=== PATIENT | female | born 1970 | race African-American/Black ===

== ENCOUNTER 2016-09-11 08:58 | Day surgery (SDC) | payer OTHER ==
[2016-09-06 13:00] VITALS: BMI 30.2
[2016-09-11 09:21] VITALS: TEMP 98.3
[2016-09-11] MEDS ORDERED: LIDOCAINE 1% 20 ML VIAL (10MG/ML) FOR IV START INTRADERMA ONE (09:23)
[2016-09-11] MEDS: LACTATED RINGERS 1,000 ML IV SCH ×2 (09:25→11:08)
[2016-09-11] MEDS ORDERED: LIDOCAINE 1% INJ 10MG/ML (20 ML MDV) ONE (11:48)
[2016-09-11] MEDS ORDERED: PROPOFOL 10 MG/ML 20 ML VIAL IV ONE (11:48)
--- NOTE | 2016-09-11 11:53 | P.GSHP ---
History of Present Illness H&P Date: 09/11/16 Chief Complaint: Diarrhea 's is a 46-year-old female who's had complaints of diarrhea. Patient is today for colonoscopy to evaluate for possible colitis. - Constitutional Constitutional: Reports as per HPI Past Medical History Past Medical History: Asthma, Cancer, Chest Pain / Angina, Fibromyalgia, GERD/ Reflux, Hyperlipidemia, Hypertension, Neurologic Disorder, Osteoarthritis (OA), Seizure Disorder, Skin Disorder, Thyroid Disorder Additional Past Medical History / Comment(s): HX OF SEIZURES (LAST -2015), MIGRAINES, VERTIGO, HEART MURMUR, SLIGHT SWELLING LOWER EXTREMITIES, CONSTIPATION., ARTHRITIS BACK & NERVE PAIN. , DEGENERATIVE DISC, HX OF RIGHT BREAST CANCER WITH CHEMO., eczema History of Any Multi-Drug Resistant Organisms: MRSA Date of last positivie culture/infection: 11/23/14 MDRO Source:: urine Past Surgical History: Breast Surgery, Cholecystectomy, Tubal Ligation Additional Past Surgical History / Comment(s): RIGHT MASTECTOMY, PORT inserted/ removed Past Anesthesia/Blood Transfusion Reactions: Motion Sickness Additional Past Anesthesia/Blood Transfusion Reaction / Comment(s): SISTER = DIFFICULTY WAKING UP. Past Psychological History: Anxiety, Bipolar, Depression Smoking Status: Never smoker Past Alcohol Use History: None Reported Past Drug Use History: None Reported - Past Family History Brother(s) Family Medical History: Cancer Additional Family Medical History / Comment(s): KIDNEY CANCER Medications and Allergies Home Medications Medication Instructions Recorded Confirmed Type Albuterol Inhaler [Ventolin Hfa 1 - 2 puff INHALATION TID PRN 10/20/15 09/11/16 History Inhaler] Cyclobenzaprine [Flexeril] 10 mg PO HS 10/20/15 09/11/16 History DULoxetine HCL [Cymbalta] 60 mg PO BID 10/20/15 09/11/16 History Famotidine [Pepcid] 20 mg PO BID 10/20/15 09/11/16 History Furosemide [Lasix] 20 mg PO BID 10/20/15 09/11/16 History Gabapentin [Neurontin] 100 mg PO HS 10/20/15 09/11/16 History Meclizine [Antivert] 12.5 mg PO HS PRN 10/20/15 09/11/16 History Meloxicam [Mobic] 7.5 mg PO BID 10/20/15 09/11/16 History Nitroglycerin Sl Tabs [Nitrostat] 0.4 mg SUBLINGUAL DIRECTED PRN 10/20/15 History Propranolol [Inderal] 40 mg PO BID 10/20/15 09/11/16 History Simvastatin [Zocor] 20 mg PO HS 10/20/15 09/11/16 History lamoTRIgine [LaMICtal] 100 mg PO BID 10/20/15 09/11/16 History levETIRAcetam [Keppra] 1,000 mg PO BID 10/20/15 09/11/16 History Beclomethasone Dipropionate [Qvar 1 puff INHALATION DAILY 11/03/15 09/11/16 History 80 mcg] L.acidoph,Paracasei, B.lactis 1 each PO DAILY 09/06/16 09/11/16 History [Probiotic] Allergies Allergy/AdvReac Type Severity Reaction Status Date / Time morphine Allergy Unknown SEVERE Verified 09/11/16 09:16 HEADACHE Surgical - Exam Vital Signs Temp Pulse BP Pulse Ox 98.3 F 84 144/90 96 09/11/16 09:20 09/11/16 09:20 09/11/16 09:20 09/11/16 09:20 - General well developed, no distress - Eyes PERRL - ENT normal pinna - Neck no masses - Respiratory normal expansion - Cardiovascular Rhythm: regular - Abdomen Abdomen: soft, non tender Assessment and Plan Plan: Diarrhea, possible Claeys. We'll perform colonoscopy.
--- NOTE | 2016-09-11 12:08 | P.OP ---
Date of Procedure: 09/11/16 Preoperative Diagnosis: Diarrhea Postoperative Diagnosis: Rectal biopsy pending possible colitis Deferred pathology Procedure(s) Performed: Colonoscopy Implants: Anesthesia: MAC Surgeon: Qasim Mcmillan Pathology: other (Rectum) Condition: stable Disposition: PACU Indications for Procedure: Operative Findings: Description of Procedure: The patient's placed on the endoscopy table in the lateral position. She received IV sedation. Digital rectal exam was performed which revealed no abnormalities. The flexible colonoscope was then placed patient anus and passed throughout the entire colon. The ileocecal valve was visualized. The cecum, ascending and transverse colon appeared normal. The descending and sigmoid colon appeared normal. Scope was then brought back the rectum and a random biopsies performed. There is no evidence of any obvious information. The scope was then withdrawn from the patient.
[2016-09-11 12:39] VITALS: BP 143/83; PULSE 70
== END 2016-09-11 12:45 | disposition home or self-care (01) ==
LOC: ORWHC2ENDO 08:58
PROVIDERS: ATTEND Surgery
DX: R19.7 Diarrhea, unspecified (principal); J45.909 Unspecified asthma, uncomplicated; K21.9 Gastro-esophageal reflux disease without esophagitis; M79.7 Fibromyalgia; E78.5 Hyperlipidemia, unspecified; I10 Essential (primary) hypertension; M19.90 Unspecified osteoarthritis, unspecified site; G40.909 Epilepsy, unspecified, not intractable, without status epilepticus; Z79.891 Long term (current) use of opiate analgesic; Z79.899 Other long term (current) drug therapy; Z88.5 Allergy status to narcotic agent
CPT/HCPCS: 81025; 88305; 45380; J2001; J2704

== ENCOUNTER → 2016-09-20 | Outpatient (CLI) | payer OTHER ==
--- NOTE | 2016-09-20 11:24 | FL ---
EXAMINATION TYPE: FL UGI air DATE OF EXAM: 09/20/2016 COMPARISON: NONE HISTORY: GERD TECHNIQUE: A double contrast UGI study is performed. FINDINGS: The esophagus shows normal motility and emptying into the stomach. No evidence of hiatal hernia or stricture noted. There is moderate reflux when the patient is lying dependently. The stomach shows normal distensibility, peristalsis, and mucosal folds. No evidence of any mass or ulcer disease. No significant gastroesophageal reflux was seen during real time performance of this study. The duodenal bulb, sweep, and proximal small bowel loops are unremarkable. IMPRESSION: MODERATE REFLUX.
== END | disposition home or self-care (01) ==
LOC: RADFLWHC 10:38
PROVIDERS: ATTEND Family Medicine
DX: K21.9 Gastro-esophageal reflux disease without esophagitis (principal)
CPT/HCPCS: 74246

== ENCOUNTER → 2017-01-21 | Outpatient (CLI) | payer OTHER ==
[2017-01-21 12:32] LABS: Non-African American GFR(MDRD) 59 (>60 ml/min/1.73 sqM)
--- NOTE | 2017-01-21 14:40 | MR ---
EXAMINATION TYPE: MR brain/cspine wo/w DATE OF EXAM: 01/21/2017 COMPARISON: MRI brain September 20, 2009. MRI cervical spine December 25, 2006. 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 Headache and seizure s with dizziness or hearing loss per patient. Neck pain causing pain or weakness in both arms and fin gers per patient. TECHNIQUE: Multiplanar, multisequence images of the cervical spine, brain, and brainstem are all performed witho ut and with IV contrast, utilizing 8 mL intravenous Gadavist . FINDINGS: BRAIN: Diffusion weighted images demonstrate no evidence of a recent infarct or other diffusion abnormality. There is no extra-axial fluid collection or significant white matter signal abnormality. The ventr icular system and cisternal spaces are normal in size and appearance. The brain volume is age approp riate. T2 coronal weighted images show hippocampal gyri to appear symmetric and felt within normal li mits. Midline structures demonstrate normal morphology. The craniocervical junction appears within normal limits. Post contrast images demonstrate no abnormal enhancement. The dural venous sinuses appear pa tent. The visualized sinuses are clear and the globes are intact. IMPRESSION: Unremarkable study. No significant change from prior. C-SPINE: FINDINGS: Sagittal images of the cervical spine show the craniocervical junction to appear within nor mal limits. The cervical and upper thoracic spinal cord is normal in caliber and signal. There is ge neralized AP diameter narrowing of the cervical spinal canal redemonstrated. Vertebral alignment clare ins straightened. The vertebral body heights remain normal. There is mild to moderate multilevel dis c space narrowing with multilevel posterior disc herniations effacing anterior thecal sac at C3-C4 th rough T1-T2 level on sagittal images. No abnormal postcontrast enhancement is seen. There is mild to moderate multilevel anterior spurring redemonstrated. The bone marrow signal intensity is within norm al limits. Axial images at C2-C3 level shows mild left-sided neural foraminal narrowing due to uncovertebral fac et arthropathy. Axial images at C3-C4 level show broad-based posterior disc protrusion effacing anterior thecal sac. There is uncovertebral facet degenerative changes bilaterally. There is moderate to advanced bilatera l neural foraminal narrowing at this level identified. Axial images at C4-C5 level show more prominent broad-based posterior disc protrusion effacing anteri or thecal sac up to ventral surface of spinal cord. There is advanced left greater than right bilater al neural foraminal narrowing at this level identified. Axial images at C5-C6 level redemonstrates prominent right paracentral disc protrusion on axial image 24 more prominent than prior study narrowing right aspect of spinal cord without abnormal signal. Mo derate bilateral neural foraminal narrowing is seen at this level. Axial images at C6-C7 level show broad-based right paracentral/foraminal disc protrusion effacing ant erolateral thecal sac causing flattening of the spinal cord and advanced right with moderate to advan christina left-sided neural foraminal narrowing seen best seen near axial images 12 through 14. Axial images at C7-T1 level show broad-based posterior disc protrusion effacing anterior thecal sac u p to ventral surface of spinal cord and causing moderate to advanced left greater than right neural f oraminal narrowing. IMPRESSION: Straightening of cervical spine with significant multilevel degenerative changes redemons trated, progression from 2007 MRI is noted. Further details are noted as discussed above as there is significant multilevel bilateral neural foraminal narrowing and spinal canal effacement present.
[2017-01-22 06:58] LABS: Levetiracetam (Keppra) 8.2 ug/mL (3.0-60.0)
[2017-01-22 14:12] LABS: Lamotrigine (Lamictal) 2.8 ug/mL (2.0-15.0)
== END | disposition home or self-care (01) ==
LOC: RADMRIMAIN 11:46
PROVIDERS: ATTEND Psychiatry & Neurology Neurology
DX: G40.009 Localization-related (focal) (partial) idiopathic epilepsy and epileptic syndromes with seizures of localized onset, not intractable, without status epilepticus (principal); M99.71 Connective tissue and disc stenosis of intervertebral foramina of cervical region; M47.812 Spondylosis without myelopathy or radiculopathy, cervical region; Z13.89 Encounter for screening for other disorder
CPT/HCPCS: 80175; 80177; 82565; 70553; 72156; 36415; A9581

== ENCOUNTER → 2017-04-25 | Outpatient (CLI) | payer OTHER ==
--- NOTE | 2017-04-25 13:58 | ECHOS ---
STRESS ECHOCARDIOGRAM INDICATIONS: Chest pain. MEDICATIONS: Keppra, Lamictal, Cymbalta, metoprolol, gabapentin, simvastatin, metformin, furosemide. BASELINE HEART RATE: 82 BASELINE BLOOD PRESSURE: 160/84 MAXIMUM HEART RATE: 152 MAXIMUM BLOOD PRESSURE: 188/91 85% MPHR: 147 100% MPHR: 173 METS: 7.9 MAXIMUM STAGE REACHED: 3 TOTAL EXERCISE TIME: 6:30 CLINICAL INFORMATION: This is an exercise stress echo report. History of chest discomfort. Baseline heart rate 82 beats per minute. Baseline blood pressure 160/84 mmHg. Baseline 12-lead ECG shows normal sinus rhythm with nonspecific ST-T abnormalities inferolaterally. Patient exercised on a Mahesh protocol for 6 minutes 30 seconds achieving a peak heart rate of 152 beats per minute. Peak blood pressure 188/91 mmHg. Occasional PVCs noted. There was no ECG evidence for ischemia. No sustained or nonsustained arrhythmias noted. Baseline 2D echo images showed normal LV size, systolic function without segmental wall motion abnormalities. At peak exercise, there was excellent augmentation of overall LV contractility without developing any wall motion abnormalities. At recovery, regional global LV systolic function remained normal. IMPRESSION: Average exercise capacity without any ECG or echocardiographic evidence for ischemia. MMODL / IJN: [id number] /
== END | disposition home or self-care (01) ==
LOC: RADNMMAIN 09:52
PROVIDERS: ATTEND Family Medicine
DX: R94.31 Abnormal electrocardiogram [ECG] [EKG] (principal)
CPT/HCPCS: 93017; 93350

== ENCOUNTER 2017-05-08 09:30 | Emergency (ER) | payer OTHER ==
[2017-05-08] MEDS ORDERED: SODIUM CHLORIDE 0.9% 500 ML IV STA ×2 (09:36→12:06)
[2017-05-08] MEDS ORDERED: SODIUM CHLORIDE 0.9% 1,000 ML IV STA (09:36)
[2017-05-08] MEDS ORDERED: HYDROmorphone 2 MG/ML 1 ML SYRINGE IVP STA (10:01)
[2017-05-08] MEDS ORDERED: ACETAMINOPHEN IV (For NPO) 1,000 MG in EMPTY BAG 1 BAG IVPB STA (10:01)
--- NOTE | 2017-05-08 10:07 | ED ---
General Adult HPI - General Chief complaint: Chest Pain Stated complaint: Chest Pain/SOB Time Seen by Provider: 05/08/17 09:36 Source: patient, EMS, RN notes reviewed, old records reviewed Mode of arrival: EMS - History of Present Illness Initial comments: This is a 47-year-old female to the ER for evaluation. Patient coming in for multiple complaints today. Patient's complaints she is increasing pain. She has pain arm hand pain neck pain back pain chest pain. Patient's pain is related to recent surgery. Patient's surgery was for nerve damage in her neck. Patient's pain at home is not being controlled well is actually getting worse. Patient denies fevers no shortness of breath cough or congestion. She states she may have some urinary tract symptoms. No abdominal pain. - Related Data Home Medications Medication Instructions Recorded Confirmed Albuterol Inhaler [Ventolin Hfa 1 - 2 puff INHALATION RT-TID PRN 10/20/15 Inhaler] DULoxetine HCL [Cymbalta] 60 mg PO DAILY 10/20/15 05/08/17 Furosemide [Lasix] 20 mg PO BID 10/20/15 05/08/17 Nitroglycerin Sl Tabs [Nitrostat] 0.4 mg SUBLINGUAL Q5M PRN 10/20/15 05/08/17 Propranolol [Inderal] 40 mg PO BID 10/20/15 05/08/17 lamoTRIgine [LaMICtal] 100 mg PO BID 10/20/15 05/08/17 levETIRAcetam [Keppra] 1,000 mg PO BID 10/20/15 05/08/17 Albuterol Nebulized [Ventolin 2.5 mg INHALATION RT-Q6H PRN 05/08/17 05/08/17 Nebulized] Bisacodyl [Dulcolax] 5 mg PO DAILY PRN 05/08/17 05/08/17 Diazepam [Valium] 5 mg PO Q6H PRN 05/08/17 05/08/17 Flunisolide [Aerospan] 1 puff INHALATION RT-DAILY 05/08/17 05/08/17 Gabapentin [Neurontin] 300 mg PO TID 05/08/17 05/08/17 HYDROcodone/APAP 5-325MG [[place] 1 - 2 tab PO Q4HR PRN 05/08/17 05/08/17 5-325] Meclizine [Antivert] 25 mg PO TID PRN 05/08/17 05/08/17 Omeprazole 20 mg PO BID 05/08/17 05/08/17 Polyethylene Glycol 3350 [Miralax] 17 gm PO DAILY 05/08/17 05/08/17 Sennosides [Senna] 8.6 mg PO BID 05/08/17 05/08/17 Simvastatin [Zocor] 20 mg PO HS 05/08/17 05/08/17 metFORMIN HCL [Glucophage] 500 mg PO BID 05/08/17 05/08/17 Previous Rx's Medication Instructions Recorded hydrOXYzine HCL [Atarax] 25 mg PO HS #20 tab 05/08/17 traMADol HCl [Ultram] 100 mg PO Q6HR PRN #20 tab 05/08/17 Allergies Allergy/AdvReac Type Severity Reaction Status Date / Time morphine Allergy Unknown SEVERE Verified 05/08/17 09:50 HEADACHE Review of Systems ROS Statement: Those systems with pertinent positive or pertinent negative responses have been documented in the HPI. ROS Other: All systems not noted in ROS Statement are negative. Past Medical History Past Medical History: Asthma, Cancer, Chest Pain / Angina, Diabetes Mellitus, Fibromyalgia, GERD/Reflux, Hyperlipidemia, Hypertension, Neurologic Disorder, Osteoarthritis (OA), Seizure Disorder, Skin Disorder, Thyroid Disorder Additional Past Medical History / Comment(s): HX OF SEIZURES (LAST -2015), MIGRAINES, VERTIGO, HEART MURMUR, SLIGHT SWELLING LOWER EXTREMITIES, CONSTIPATION., ARTHRITIS BACK & NERVE PAIN. , DEGENERATIVE DISC, HX OF RIGHT BREAST CANCER WITH CHEMO., eczema History of Any Multi-Drug Resistant Organisms: MRSA Date of last positivie culture/infection: 11/23/14 MDRO Source:: urine Past Surgical History: Breast Surgery, Cholecystectomy, Tubal Ligation Additional Past Surgical History / Comment(s): RIGHT MASTECTOMY, PORT inserted/ removed, spinal fusion Past Anesthesia/Blood Transfusion Reactions: Motion Sickness Additional Past Anesthesia/Blood Transfusion Reaction / Comment(s): SISTER = DIFFICULTY WAKING UP. Past Psychological History: Anxiety, Bipolar, Depression Smoking Status: Never smoker Past Alcohol Use History: None Reported Past Drug Use History: None Reported - Past Family History Brother(s) Family Medical History: Cancer Additional Family Medical History / Comment(s): KIDNEY CANCER General Exam - General Exam Comments Initial Comments: Anterior neck incision is clean dry intact General appearance: alert, in no apparent distress Head exam: Present: atraumatic, normocephalic, normal inspection Eye exam: Present: normal appearance, PERRL, EOMI. Absent: scleral icterus, conjunctival injection, periorbital swelling ENT exam: Present: normal exam, mucous membranes moist Neck exam: Present: normal inspection. Absent: tenderness, meningismus, lymphadenopathy Respiratory exam: Present: normal lung sounds bilaterally. Absent: respiratory distress, wheezes, rales, rhonchi, stridor Cardiovascular Exam: Present: regular rate, normal rhythm, normal heart sounds. Absent: systolic murmur, diastolic murmur, rubs, gallop, clicks GI/Abdominal exam: Present: soft, normal bowel sounds. Absent: distended, tenderness, guarding, rebound, rigid Extremities exam: Present: normal inspection, full ROM, normal capillary refill. Absent: tenderness, pedal edema, joint swelling, calf tenderness Back exam: Present: normal inspection Neurological exam: Present: alert, oriented X3, CN II-XII intact Psychiatric exam: Present: normal affect, normal mood Skin exam: Present: warm, dry, intact, normal color. Absent: rash Course Vital Signs 05/08/17 05/08/17 05/08/17 09:37 09:41 11:47 Temperature 98.1 F Pulse Rate 77 80 68 Respiratory 18 18 12 Rate Blood Pressure 178/86 127/67 127/76 O2 Sat by Pulse 98 96 97 Oximetry 05/08/17 13:16 Temperature Pulse Rate 74 Respiratory 18 Rate Blood Pressure 143/65 O2 Sat by Pulse 94 L Oximetry - Reevaluation(s) Reevaluation #1: 05/08/17 13:51 Patient has adequate pain control at this time, she is resting comfortably able to get some rest, Reevaluation #2: 05/08/17 13:51 Patient with patient's family, they updated of patient condition, questions are answered EKG Findings - EKG Comments: EKG Findings:: EKG shows normal sinus rhythm rate of 71, KS 140, QRS 84, QTC 480 Medical Decision Making - Medical Decision Making 47 female the ER for evaluation, patient chest pain neck pain. Pain and numbness and tingling, patient has multiple surgeries, negative for acute disease, no recent fevers. Patient at this time is adequate pain control was able to get some rest encouraged increased fluid intake and follow up with surgery - Lab Data Result diagrams: 05/08/17 10:43 05/08/17 10:43 Lab Results 05/08/17 05/08/17 05/08/17 Range/Units 10:43 10:43 10:43 WBC 13.4 H (3.8-10.6) k/uL RBC 3.97 (3.80-5.40) m/uL Hgb 12.6 (11.4-16.0) gm/dL Hct 37.0 (34.0-46.0) % MCV 93.2 (80.0-100.0) fL MCH 31.6 (25.0-35.0) pg MCHC 33.9 (31.0-37.0) g/dL RDW 12.8 (11.5-15.5) % Plt Count 361 (150-450) k/uL Neutrophils % 61 % Lymphocytes % 24 % Monocytes % 5 % Eosinophils % 8 % Basophils % 1 % Neutrophils # 8.2 H (1.3-7.7) k/uL Lymphocytes # 3.2 (1.0-4.8) k/uL Monocytes # 0.7 (0-1.0) k/uL Eosinophils # 1.0 H (0-0.7) k/uL Basophils # 0.1 (0-0.2) k/uL PT (9.0-12.0) sec INR (<1.2) APTT (22.0-30.0) sec D-Dimer (<0.60) mg/L FEU Sodium 141 (137-145) mmol/L Potassium 3.8 (3.5-5.1) mmol/L Chloride 99 (98-107) mmol/L Carbon Dioxide 27 (22-30) mmol/L Anion Gap 15 mmol/L BUN 10 (7-17) mg/dL Creatinine 0.70 (0.52-1.04) mg/dL Est GFR (MDRD) Af Amer >60 (>60 ml/min/1.73 sqM) Est GFR (MDRD) Non-Af >60 (>60 ml/min/1.73 sqM) Glucose 161 H (74-99) mg/dL Calcium 10.0 (8.4-10.2) mg/dL Phosphorus 3.7 (2.5-4.5) mg/dL Magnesium 1.7 (1.6-2.3) mg/dL Total Bilirubin 0.2 (0.2-1.3) mg/dL AST 23 (14-36) U/L ALT 53 H (9-52) U/L Alkaline Phosphatase 75 (38-126) U/L Total Creatine Kinase 89 (30-135) U/L CK-MB (CK-2) 0.7 (0.0-2.4) ng/mL CK-MB (CK-2) Rel Index 0.8 Troponin I <0.012 (0.000-0.034) ng/mL Total Protein 7.0 (6.3-8.2) g/dL Albumin 4.2 (3.5-5.0) g/dL Urine Color Urine Appearance (Clear) Urine pH (5.0-8.0) Ur Specific [place] (1.001-1.035) Urine Protein (Negative) Urine Glucose (UA) (Negative) Urine Ketones (Negative) Urine Blood (Negative) Urine Nitrite (Negative) Urine Bilirubin (Negative) Urine Urobilinogen (<2.0) mg/dL Ur Leukocyte Esterase (Negative) Urine WBC (0-5) /hpf Ur Squamous Epith Cells (0-4) /hpf Urine Bacteria (None) /hpf Urine Mucus (None) /hpf 05/08/17 05/08/17 Range/Units 10:43 13:07 WBC (3.8-10.6) k/uL RBC (3.80-5.40) m/uL Hgb (11.4-16.0) gm/dL Hct (34.0-46.0) % MCV (80.0-100.0) fL MCH (25.0-35.0) pg MCHC (31.0-37.0) g/dL RDW (11.5-15.5) % Plt Count (150-450) k/uL Neutrophils % % Lymphocytes % % Monocytes % % Eosinophils % % Basophils % % Neutrophils # (1.3-7.7) k/uL Lymphocytes # (1.0-4.8) k/uL Monocytes # (0-1.0) k/uL Eosinophils # (0-0.7) k/uL Basophils # (0-0.2) k/uL PT 10.0 (9.0-12.0) sec INR 1.0 (<1.2) APTT 20.5 L (22.0-30.0) sec D-Dimer 4.28 H (<0.60) mg/L FEU Sodium (137-145) mmol/L Potassium (3.5-5.1) mmol/L Chloride (98-107) mmol/L Carbon Dioxide (22-30) mmol/L Anion Gap mmol/L BUN (7-17) mg/dL Creatinine (0.52-1.04) mg/dL Est GFR (MDRD) Af Amer (>60 ml/min/1.73 sqM) Est GFR (MDRD) Non-Af (>60 ml/min/1.73 sqM) Glucose (74-99) mg/dL Calcium (8.4-10.2) mg/dL Phosphorus (2.5-4.5) mg/dL Magnesium (1.6-2.3) mg/dL Total Bilirubin (0.2-1.3) mg/dL AST (14-36) U/L ALT (9-52) U/L Alkaline Phosphatase (38-126) U/L Total Creatine Kinase (30-135) U/L CK-MB (CK-2) (0.0-2.4) ng/mL CK-MB (CK-2) Rel Index Troponin I (0.000-0.034) ng/mL Total Protein (6.3-8.2) g/dL Albumin (3.5-5.0) g/dL Urine Color Yellow Urine Appearance Clear (Clear) Urine pH 5.5 (5.0-8.0) Ur Specific [place] 1.041 H (1.001-1.035) Urine Protein Trace H (Negative) Urine Glucose (UA) Negative (Negative) Urine Ketones Negative (Negative) Urine Blood Negative (Negative) Urine Nitrite Negative (Negative) Urine Bilirubin Negative (Negative) Urine Urobilinogen <2.0 (<2.0) mg/dL Ur Leukocyte Esterase Large H (Negative) Urine WBC 4 (0-5) /hpf Ur Squamous Epith Cells 3 (0-4) /hpf Urine Bacteria Rare H (None) /hpf Urine Mucus Rare H (None) /hpf - Radiology Data Radiology results: report reviewed (Chest x-ray CT chest negative for acute disease), image reviewed Disposition Clinical Impression: Chest pain, Postoperative pain Disposition: HOME SELF-CARE Condition: Good Instructions: Chest Pain (ED), Paresthesia (ED) Prescriptions: hydrOXYzine HCL [Atarax] 25 mg PO HS #20 tab traMADol HCl [Ultram] 100 mg PO Q6HR PRN #20 tab PRN Reason: Pain Referrals: Blanca Escamilla DO [Primary Care Provider] - 1-2 days
[2017-05-08 10:53] LABS: Basophils # (A) 0.1 k/uL (0-0.2); Basophils % (A) 1 %; Eosinophils % (A) 8 %; HGB 12.6 gm/dL (11.4-16.0); Lymphocytes # (A) 3.2 k/uL (1.0-4.8); Lymphocytes % (A) 24 %; MCH 31.6 pg (25.0-35.0); MCHC 33.9 g/dL (31.0-37.0); MCV 93.2 fL (80.0-100.0); Monocytes # (A) 0.7 k/uL (0-1.0); Monocytes % (A) 5 %; Neutrophils # (A) 8.2 k/uL (1.3-7.7); Neutrophils % (A) 61 %; Platelet Count 361 k/uL (150-450); RBC 3.97 m/uL (3.80-5.40); RDW 12.8 % (11.5-15.5); WBC 13.4 k/uL (3.8-10.6)
[2017-05-08 11:03] LABS: ALT 53 U/L (9-52); AST 23 U/L (14-36); Albumin 4.2 g/dL (3.5-5.0); Alkaline Phosphatase 75 U/L (38-126); Anion Gap 15 mmol/L; Blood Urea Nitrogen 10 mg/dL (7-17); Carbon Dioxide 27 mmol/L (22-30); Chloride 99 mmol/L (98-107); Glucose 161 mg/dL (74-99); Magnesium 1.7 mg/dL (1.6-2.3); Phosphorus 3.7 mg/dL (2.5-4.5); Potassium 3.8 mmol/L (3.5-5.1); Sodium 141 mmol/L (137-145); Total Bilirubin 0.2 mg/dL (0.2-1.3)
--- NOTE | 2017-05-08 11:07 | XR ---
EXAMINATION TYPE: XR chest 2V DATE OF EXAM: 05/08/2017 COMPARISON: 11/09/2012 TECHNIQUE: PA and lateral views submitted. HISTORY: Body weakness FINDINGS: The lungs are clear and there is no pneumothorax, pleural effusion, or focal pneumonia. Surgical ch matt overlying the cervical spine. Heart size stable. Positioning limits assessment of the lung apice s. There is prominence of the right hilum. IMPRESSION: 1. No acute process. There is prominence the right hilum which could be correlated with a short-term follow-up CT of the chest.
[2017-05-08 11:15] LABS: Creatine Kinase 89 U/L (30-135)
[2017-05-08 11:29] LABS: Creatine Kinase MB 0.7 ng/mL (0.0-2.4); Troponin I <0.012 ng/mL (0.000-0.034)
[2017-05-08 11:40] LABS: D-Dimer 4.28 mg/L FEU (<0.60)
[2017-05-08 11:48] LABS: Partial Thromboplastin Time 20.5 sec (22.0-30.0)
[2017-05-08] MEDS ORDERED: RX INFO: IV CONTRAST WAS GIVEN 1 EACH MISC MISCELLANE PRN (12:05)
--- NOTE | 2017-05-08 12:54 | CT ---
EXAMINATION TYPE: CT angio chest DATE OF EXAM: 05/08/2017 COMPARISON: NONE HISTORY: Chest pain and shortness of breath. Neck surgery 1 week ago, elevated d-dimer. CT DLP: 354.90 mGycm CONTRAST: CT chest with contrast and 3D reconstruction with MIP imaging is performed with IV Contrast, patient injected with 79 mL of Omnipaque 350. Contrast-enhanced CT of the chest was performed through the course of the pulmonary arteries with sara g and mediastinal window settings submitted. 3D reconstruction with MIP imaging was also performed. PULMONARY ARTERIES: The pulmonary arteries and their major tributaries are patent. I do not see dale dence for sizable filling defect to suggest pulmonary embolic process. LUNGS: The lungs are clear and free of infiltrate. No evidence for atelectasis. No pulmonary nodule or mass is detected. No pleural effusion. MEDIASTINUM: Thoracic aorta is of normal caliber . The heart is not enlarged. No evidence for media stinal mass. No mediastinal lymph nodes greater than 1cm. HILAR STRUCTURES: No evidence for mass. No hilar lymph nodes greater than 1 cm. UPPER ABDOMEN: No significant abnormality is seen. IMPRESSION: 1. No evidence for Pulmonary embolism at this time.
[2017-05-08 13:17] VITALS: RESP 18
[2017-05-08 13:27] LABS: Appearance,Urine Clear (Clear); Bacteria,Urine Rare /hpf; Bilirubin,Urine Negative (Negative); Blood,Urine Negative (Negative); Color,Urine Yellow; Glucose,Urine (UA) Negative (Negative); Ketones,Urine Negative (Negative); Leukocyte Esterase,Urine Large (Negative); Mucus,Urine Rare /hpf; Nitrite,Urine Negative (Negative); PH, Urine 5.5 (5.0-8.0); Protein,Urine Trace (Negative); Specific Gravity,Urine 1.041 (1.001-1.035); Squamous Epithelial Cell,Urine 3 /hpf (0-4); Urobilinogen,Urine <2.0 mg/dL (<2.0); WBC,Urine 4 /hpf (0-5)
[2017-05-08 14:07] VITALS: BP 150/65; PULSE 68; TEMP 97.4
== END 2017-05-08 14:07 | disposition home or self-care (01) ==
LOC: EC 09:30
DX: R07.9 Chest pain, unspecified (principal); M54.2 Cervicalgia; M54.9 Dorsalgia, unspecified; M79.603 Pain in arm, unspecified; J45.909 Unspecified asthma, uncomplicated; E11.9 Type 2 diabetes mellitus without complications; M79.7 Fibromyalgia; K21.9 Gastro-esophageal reflux disease without esophagitis; E78.5 Hyperlipidemia, unspecified; I10 Essential (primary) hypertension; M19.90 Unspecified osteoarthritis, unspecified site; G40.909 Epilepsy, unspecified, not intractable, without status epilepticus; E07.9 Disorder of thyroid, unspecified; F31.9 Bipolar disorder, unspecified; F41.9 Anxiety disorder, unspecified; Z86.14 Personal history of Methicillin resistant Staphylococcus aureus infection; Z85.3 Personal history of malignant neoplasm of breast; Z79.84 Long term (current) use of oral hypoglycemic drugs; Z79.51 Long term (current) use of inhaled steroids; Z79.899 Other long term (current) drug therapy; Z88.5 Allergy status to narcotic agent; Z53.29 Procedure and treatment not carried out because of patient's decision for other reasons
CPT/HCPCS: 36415; 93005; 85379; 80053; 82550; 82553; 83735; 84100; 84484; 85025; 85610; 85730; 81001; 87086; 71046; 71275; 99285; 96374; 96361 ×4; J1170; Q9967

== ENCOUNTER 2017-05-09 03:22 | Emergency (ER) | payer OTHER ==
[2017-05-09] MEDS ORDERED: HYDROmorphone 2 MG/ML 1 ML SYRINGE IM STA (04:02)
--- NOTE | 2017-05-09 04:05 | ED ---
General Adult HPI - General Chief complaint: Neck Pain/Injury Stated complaint: post op concerns Time Seen by Provider: 05/09/17 03:25 Source: patient, RN notes reviewed Mode of arrival: ambulatory Limitations: no limitations - History of Present Illness Initial comments: This is a 47-year-old female who states she had neck surgery earlier this month and her [place] and Valium and not helping her with the pain. Patient states she' s only here just to get a pain shot so that she can get some sleep tonight. Patient states she will contact her primary medical care doctor or her surgeon tomorrow to get more pain medicine or stronger pain medicine. Patient denies any new symptoms. Patient denies any numbness weakness. Patient denies any headache. Patient denies any fever chills or cough. - Related Data Home Medications Medication Instructions Recorded Confirmed Albuterol Inhaler [Ventolin Hfa 1 - 2 puff INHALATION RT-TID PRN 10/20/15 Inhaler] DULoxetine HCL [Cymbalta] 60 mg PO DAILY 10/20/15 05/08/17 Furosemide [Lasix] 20 mg PO BID 10/20/15 05/08/17 Nitroglycerin Sl Tabs [Nitrostat] 0.4 mg SUBLINGUAL Q5M PRN 10/20/15 05/08/17 Propranolol [Inderal] 40 mg PO BID 10/20/15 05/08/17 lamoTRIgine [LaMICtal] 100 mg PO BID 10/20/15 05/08/17 levETIRAcetam [Keppra] 1,000 mg PO BID 10/20/15 05/08/17 Albuterol Nebulized [Ventolin 2.5 mg INHALATION RT-Q6H PRN 05/08/17 05/08/17 Nebulized] Bisacodyl [Dulcolax] 5 mg PO DAILY PRN 05/08/17 05/08/17 Diazepam [Valium] 5 mg PO Q6H PRN 05/08/17 05/08/17 Flunisolide [Aerospan] 1 puff INHALATION RT-DAILY 05/08/17 05/08/17 Gabapentin [Neurontin] 300 mg PO TID 05/08/17 05/08/17 HYDROcodone/APAP 5-325MG [[place] 1 - 2 tab PO Q4HR PRN 05/08/17 05/08/17 5-325] Meclizine [Antivert] 25 mg PO TID PRN 05/08/17 05/08/17 Omeprazole 20 mg PO BID 05/08/17 05/08/17 Polyethylene Glycol 3350 [Miralax] 17 gm PO DAILY 05/08/17 05/08/17 Sennosides [Senna] 8.6 mg PO BID 05/08/17 05/08/17 Simvastatin [Zocor] 20 mg PO HS 05/08/17 05/08/17 metFORMIN HCL [Glucophage] 500 mg PO BID 05/08/17 05/08/17 Previous Rx's Medication Instructions Recorded hydrOXYzine HCL [Atarax] 25 mg PO HS #20 tab 05/08/17 traMADol HCl [Ultram] 100 mg PO Q6HR PRN #20 tab 05/08/17 Allergies Allergy/AdvReac Type Severity Reaction Status Date / Time morphine Allergy Unknown SEVERE Verified 05/08/17 09:50 HEADACHE Review of Systems ROS Statement: Those systems with pertinent positive or pertinent negative responses have been documented in the HPI. ROS Other: All systems not noted in ROS Statement are negative. Past Medical History Past Medical History: Asthma, Cancer, Chest Pain / Angina, Diabetes Mellitus, Fibromyalgia, GERD/Reflux, Hyperlipidemia, Hypertension, Neurologic Disorder, Osteoarthritis (OA), Seizure Disorder, Skin Disorder, Thyroid Disorder Additional Past Medical History / Comment(s): HX OF SEIZURES (LAST -2015), MIGRAINES, VERTIGO, HEART MURMUR, SLIGHT SWELLING LOWER EXTREMITIES, CONSTIPATION., ARTHRITIS BACK & NERVE PAIN. , DEGENERATIVE DISC, HX OF RIGHT BREAST CANCER WITH CHEMO., eczema History of Any Multi-Drug Resistant Organisms: MRSA Date of last positivie culture/infection: 11/23/14 MDRO Source:: urine Past Surgical History: Breast Surgery, Cholecystectomy, Tubal Ligation Additional Past Surgical History / Comment(s): RIGHT MASTECTOMY, PORT inserted/ removed, spinal fusion Past Anesthesia/Blood Transfusion Reactions: Motion Sickness Additional Past Anesthesia/Blood Transfusion Reaction / Comment(s): SISTER = DIFFICULTY WAKING UP. Past Psychological History: Anxiety, Bipolar, Depression Smoking Status: Never smoker Past Alcohol Use History: None Reported Past Drug Use History: None Reported - Past Family History Brother(s) Family Medical History: Cancer Additional Family Medical History / Comment(s): KIDNEY CANCER General Exam - General Exam Comments Initial Comments: GENERAL Patient is well-developed and well-nourished. Patient is in mild distress. EYES Patient's pupils are equal and round. Extraocular motion is intact SKIN Unremarkable NEURO The patient is alert and oriented 3 PYSCH Patient has normal interpersonal interactions. MUSCULOSKELETAL Patient has a collar on her neck I did not remove it to get any range of motion. Limitations: no limitations Course Vital Signs 05/09/17 03:23 Temperature 98.7 F Pulse Rate 80 Respiratory 16 Rate Blood Pressure 168/79 O2 Sat by Pulse 100 Oximetry Disposition Clinical Impression: Postoperative pain Disposition: HOME SELF-CARE Instructions: Neck Pain (ED) Referrals: Blanca Escamilla DO [Primary Care Provider] - 1-2 days Time of Disposition: 04:04
[2017-05-09 04:31] VITALS: BP 156/89; PULSE 77; RESP 18; TEMP 98
== END 2017-05-09 04:31 | disposition home or self-care (01) ==
LOC: EC 03:22
DX: G89.18 Other acute postprocedural pain (principal); M54.2 Cervicalgia; E78.5 Hyperlipidemia, unspecified; I10 Essential (primary) hypertension; E11.9 Type 2 diabetes mellitus without complications; J45.909 Unspecified asthma, uncomplicated; K21.9 Gastro-esophageal reflux disease without esophagitis; G40.909 Epilepsy, unspecified, not intractable, without status epilepticus; M79.7 Fibromyalgia; F31.9 Bipolar disorder, unspecified; F41.9 Anxiety disorder, unspecified; Z79.51 Long term (current) use of inhaled steroids; Z79.84 Long term (current) use of oral hypoglycemic drugs; Z79.899 Other long term (current) drug therapy; Z85.3 Personal history of malignant neoplasm of breast; Z88.5 Allergy status to narcotic agent; Z92.21 Personal history of antineoplastic chemotherapy; Z86.79 Personal history of other diseases of the circulatory system; Z86.69 Personal history of other diseases of the nervous system and sense organs; Z86.14 Personal history of Methicillin resistant Staphylococcus aureus infection; Z90.11 Acquired absence of right breast and nipple; Z98.1 Arthrodesis status
CPT/HCPCS: 99283; 96372; J1170

== ENCOUNTER → 2017-12-13 | Outpatient (CLI) | payer OTHER ==
--- NOTE | 2017-12-13 11:25 | XR ---
Cervical spine HISTORY: Status post cervical fusion Comparison to prior CT cervical spine dated 2016 Patient is status post anterior cervical fusion at C4-T1. There is anatomic alignment. Spondylosis no solo at C3-4, loss of disc height C2-3 and C3-4. Bone mineralization is maintained. Oblique images leopoldo w foraminal encroachment at C3-4, C4-5 and C5-6 and likely C6-7 bilaterally as well as C2-3 bilateral ly. IMPRESSION: Neurosurgical follow-up. Degenerative disc disease.
--- NOTE | 2017-12-13 11:55 | MR ---
EXAMINATION TYPE: MR lumbar spine wo con DATE OF EXAM: 12/13/2017 COMPARISON: Prior lumbar MRI 01/06/2007 HISTORY: Lower back/bilateral leg pain TECHNIQUE: Multiplanar, multisequence images of the lumbar spine were acquired. L1-L2: Minimal posterior broad-based disc bulge causes only slight anterior mass effect on the thecal sac, no central stenosis or foraminal encroachment, there is some loss of disc height and signal com patible disc desiccation and degenerative disc disease. L2-L3: Normal disc appearance without desiccation. No herniation, protrusion or disc bulging. No ca nal stenosis is present. Foramina are patent bilaterally. There is some mild facet arthropathy. L3-L4: Normal disc appearance without desiccation. No herniation, protrusion or disc bulging. No ca nal stenosis is present. Foramina are patent bilaterally. There is some mild facet arthropathy. L4-L5: There is a left lateral broad-based disc bulge extending towards the neural foramen, posterior broad-based disc bulge causes only minimal anterior mass effect on the thecal sac and right foramina l encroachment, there is no significant spinal stenosis. Facet arthropathy changes present. There is some loss of disc height and signal. L5-S1: Posterior broad-based disc bulge contacts the anterior thecal sac, no significant spinal steno sis or foraminal encroachment. Lumbar segments are intact. No paraspinal masses are identified. Conus medullaris has a normal appe arance. There is preserved height and alignment of the vertebral bodies. Mild spondylosis is present with minimal endplate discogenic marrow signal change. IMPRESSION: Mild degenerative disc disease as described. Facet arthropathy.
== END | disposition home or self-care (01) ==
LOC: RADMRIMAIN 08:08
PROVIDERS: ATTEND Neurological Surgery
DX: M50.31 Other cervical disc degeneration, high cervical region (principal); M51.36 Other intervertebral disc degeneration, lumbar region; M48.8X6 Other specified spondylopathies, lumbar region
CPT/HCPCS: 72050; 72148

== ENCOUNTER 2018-02-10 12:33 | Emergency (ER) | payer OTHER ==
[2018-02-10 13:27] VITALS: RESP 18
[2018-02-10] MEDS ORDERED: methylPREDNISolone SOD SUCCI 125 MG/2 ML VIAL IV STA (13:50)
[2018-02-10] MEDS ORDERED: IPRATROPIUM-ALBUTEROL 3 ML NEB INHALATION STA (13:50)
--- NOTE | 2018-02-10 14:00 | ED ---
General Adult HPI - General Chief complaint: Upper Respiratory Infection Stated complaint: cough, wheezing Time Seen by Provider: 02/10/18 13:36 Source: patient, RN notes reviewed Mode of arrival: ambulatory Limitations: no limitations - History of Present Illness Initial comments: Patient's a 48-year-old female with significant past medical history for asthma , who presented to the emergency room today with chief complaint of cough congestion over the last month. Patient admits that she follow-up the family doctor was given a different inhaler. She states she's tried this with little relief the symptoms. States she still having cough congestion. States feels somewhat short of breath. She states that she is experiencing some chest pain that is worse with the cough and deep inspiration. Patient denies any other complaints. Patient denies any recent fever, chills, back pain, abdominal pain, nausea or vomiting, numbness or tingling, dysuria or hematuria, constipation or diarrhea, headaches or visual changes, or any other complaints. - Related Data Home Medications Medication Instructions Recorded Confirmed Albuterol Inhaler [Ventolin Hfa 1 - 2 puff INHALATION RT-TID PRN 10/20/15 Inhaler] DULoxetine HCL [Cymbalta] 60 mg PO DAILY 10/20/15 02/10/18 Furosemide [Lasix] 20 mg PO BID 10/20/15 02/10/18 Nitroglycerin Sl Tabs [Nitrostat] 0.4 mg SUBLINGUAL Q5M PRN 10/20/15 02/10/18 Propranolol [Inderal] 40 mg PO BID 10/20/15 02/10/18 lamoTRIgine [LaMICtal] 100 mg PO BID 10/20/15 02/10/18 levETIRAcetam [Keppra] 1,000 mg PO BID 10/20/15 02/10/18 Albuterol Nebulized [Ventolin 2.5 mg INHALATION RT-Q6H PRN 05/08/17 02/10/18 Nebulized] Flunisolide [Aerospan] 2 puff INHALATION RT-BID 05/08/17 02/10/18 Gabapentin [Neurontin] 300 mg PO BID 05/08/17 02/10/18 Meclizine [Antivert] 25 mg PO DAILY PRN 05/08/17 02/10/18 Omeprazole 20 mg PO BID 05/08/17 02/10/18 Simvastatin [Zocor] 20 mg PO HS 05/08/17 02/10/18 metFORMIN HCL [Glucophage] 500 mg PO BID 05/08/17 02/10/18 Cranberry Fruit Concentrate [Azo 250 mg PO DAILY 02/10/18 02/10/18 Cranberry] Cyclobenzaprine [Flexeril] 10 mg PO TID 02/10/18 02/10/18 Diclofenac Sodium [Voltaren] 75 mg PO BID 02/10/18 02/10/18 Docusate [Colace] 100 mg PO DAILY 02/10/18 02/10/18 Famotidine [Pepcid] 20 mg PO BID 02/10/18 02/10/18 Lisinopril [Zestril] 10 mg PO DAILY 02/10/18 02/10/18 tiZANidine HCL 4 mg PO DAILY PRN 02/10/18 02/10/18 Previous Rx's Medication Instructions Recorded Azithromycin [Zithromax Z-pack] 0 mg PO DIRECTED #6 tab 02/10/18 predniSONE 50 mg PO DAILY #5 tab 02/10/18 Allergies Allergy/AdvReac Type Severity Reaction Status Date / Time morphine AdvReac Unknown SEVERE Verified 02/10/18 15:51 [place]AC[place] Review of Systems ROS Statement: Those systems with pertinent positive or pertinent negative responses have been documented in the HPI. ROS Other: All systems not noted in ROS Statement are negative. Past Medical History Past Medical History: Asthma, Cancer, Chest Pain / Angina, Diabetes Mellitus, Fibromyalgia, GERD/Reflux, Hyperlipidemia, Hypertension, Neurologic Disorder, Osteoarthritis (OA), Seizure Disorder, Skin Disorder, Thyroid Disorder Additional Past Medical History / Comment(s): HX OF SEIZURES (LAST -2015), MIGRAINES, VERTIGO, HEART MURMUR, SLIGHT SWELLING LOWER EXTREMITIES, CONSTIPATION., ARTHRITIS BACK & NERVE PAIN. , DEGENERATIVE DISC, HX OF RIGHT BREAST CANCER WITH CHEMO., eczema History of Any Multi-Drug Resistant Organisms: MRSA Date of last positivie culture/infection: 11/23/14 MDRO Source:: urine Past Surgical History: Breast Surgery, Cholecystectomy, Tubal Ligation Additional Past Surgical History / Comment(s): RIGHT MASTECTOMY, PORT inserted/ removed, spinal fusion Past Anesthesia/Blood Transfusion Reactions: Motion Sickness Additional Past Anesthesia/Blood Transfusion Reaction / Comment(s): SISTER = DIFFICULTY WAKING UP. Past Psychological History: Anxiety, Bipolar, Depression Smoking Status: Never smoker Past Alcohol Use History: None Reported Past Drug Use History: None Reported - Past Family History Brother(s) Family Medical History: Cancer Additional Family Medical History / Comment(s): KIDNEY CANCER General Exam - General Exam Comments Initial Comments: General: The patient is awake and alert, in no distress, and does not appear acutely ill. Eye: Pupils are equal, round and reactive to light. Extra-ocular movements are intact. No nystagmus. There is normal conjunctiva bilaterally. No signs of icterus. Ears, nose, mouth and throat: There are moist mucous membranes and no oral lesions. Neck: The neck is supple, there is no tenderness or JVD. Cardiovascular: There is a regular rate and rhythm. No murmur, rub or gallop is appreciated. Respiratory: Mild expiratory wheeze bilaterally. respirations are non-labored, breath sounds are equal. No stridor, rales, or rhonchi. Musculoskeletal: Normal ROM, no tenderness. Sensation intact. Strength 5/5. Pulses equal bilaterally 2+. Neurological: A&O x 3. CN II-XII intact, There are no obvious motor or sensory deficits. Coordination appears grossly intact. Speech is normal. Skin: Skin is warm and dry and no rashes or lesions are noted. Psychiatric: Cooperative, appropriate mood & affect, normal judgment. Limitations: no limitations Course Vital Signs 02/10/18 02/10/18 02/10/18 13:20 14:31 14:37 Temperature 98.2 F Pulse Rate 79 84 80 Respiratory 18 Rate Blood Pressure 150/82 O2 Sat by Pulse 96 Oximetry Medical Decision Making - Medical Decision Making Patient reexamined at this time shows no signs of distress. Patient is resting comfortably. Patient's chest x-rays negative. Patient's lungs cleared after breathing treatment. EKG is negative. Patient's labs unremarkable. Patient will be discharged to follow-up with the family doctor. Patient will be started on antibiotics and steroids advised follow-up family doctor over the next 2 days. - Lab Data Result diagrams: 02/10/18 14:15 02/10/18 14:15 Lab Results 02/10/18 02/10/18 02/10/18 Range/Units 14:15 14:15 14:15 WBC 7.6 (3.8-10.6) k/uL RBC 4.49 (3.80-5.40) m/uL Hgb 13.6 (11.4-16.0) gm/dL Hct 41.6 (34.0-46.0) % MCV 92.6 (80.0-100.0) fL MCH 30.3 (25.0-35.0) pg MCHC 32.7 (31.0-37.0) g/dL RDW 12.8 (11.5-15.5) % Plt Count 206 (150-450) k/uL Neutrophils % 51 % Lymphocytes % 35 % Monocytes % 4 % Eosinophils % 7 % Basophils % 1 % Neutrophils # 3.9 (1.3-7.7) k/uL Lymphocytes # 2.7 (1.0-4.8) k/uL Monocytes # 0.3 (0-1.0) k/uL Eosinophils # 0.5 (0-0.7) k/uL Basophils # 0.1 (0-0.2) k/uL PT (9.0-12.0) sec INR (<1.2) APTT (22.0-30.0) sec D-Dimer (<0.60) mg/L FEU Sodium 140 (137-145) mmol/L Potassium 4.4 (3.5-5.1) mmol/L Chloride 105 (98-107) mmol/L Carbon Dioxide 26 (22-30) mmol/L Anion Gap 9 mmol/L BUN 13 (7-17) mg/dL Creatinine 0.73 (0.52-1.04) mg/dL Est GFR (CKD-EPI)AfAm >90 (>60 ml/min/1.73 sqM) Est GFR (CKD-EPI)NonAf >90 (>60 ml/min/1.73 sqM) Glucose 130 H (74-99) mg/dL Calcium 10.0 (8.4-10.2) mg/dL Total Bilirubin 0.5 (0.2-1.3) mg/dL AST 24 (14-36) U/L ALT 35 (9-52) U/L Alkaline Phosphatase 61 (38-126) U/L Total Creatine Kinase 447 H (30-135) U/L CK-MB (CK-2) 2.6 H (0.0-2.4) ng/mL CK-MB (CK-2) Rel Index 0.6 Troponin I <0.012 (0.000-0.034) ng/mL Total Protein 7.4 (6.3-8.2) g/dL Albumin 4.4 (3.5-5.0) g/dL 02/10/18 Range/Units 14:15 WBC (3.8-10.6) k/uL RBC (3.80-5.40) m/uL Hgb (11.4-16.0) gm/dL Hct (34.0-46.0) % MCV (80.0-100.0) fL MCH (25.0-35.0) pg MCHC (31.0-37.0) g/dL RDW (11.5-15.5) % Plt Count (150-450) k/uL Neutrophils % % Lymphocytes % % Monocytes % % Eosinophils % % Basophils % % Neutrophils # (1.3-7.7) k/uL Lymphocytes # (1.0-4.8) k/uL Monocytes # (0-1.0) k/uL Eosinophils # (0-0.7) k/uL Basophils # (0-0.2) k/uL PT 10.4 (9.0-12.0) sec INR 1.1 (<1.2) APTT 22.2 (22.0-30.0) sec D-Dimer 0.28 (<0.60) mg/L FEU Sodium (137-145) mmol/L Potassium (3.5-5.1) mmol/L Chloride (98-107) mmol/L Carbon Dioxide (22-30) mmol/L Anion Gap mmol/L BUN (7-17) mg/dL Creatinine (0.52-1.04) mg/dL Est GFR (CKD-EPI)AfAm (>60 ml/min/1.73 sqM) Est GFR (CKD-EPI)NonAf (>60 ml/min/1.73 sqM) Glucose (74-99) mg/dL Calcium (8.4-10.2) mg/dL Total Bilirubin (0.2-1.3) mg/dL AST (14-36) U/L ALT (9-52) U/L Alkaline Phosphatase (38-126) U/L Total Creatine Kinase (30-135) U/L CK-MB (CK-2) (0.0-2.4) ng/mL CK-MB (CK-2) Rel Index Troponin I (0.000-0.034) ng/mL Total Protein (6.3-8.2) g/dL Albumin (3.5-5.0) g/dL Disposition Clinical Impression: Acute bronchitis Disposition: HOME SELF-CARE Condition: Good Instructions: Upper Respiratory Infection (ED) Additional Instructions: Please use medication as discussed. Please follow-up with family doctor in the next 2 days of symptoms have not improved. Please return to emergency room if the symptoms increase or worsen or for any other concerns. Prescriptions: Azithromycin [Zithromax Z-pack] 0 mg PO DIRECTED #6 tab predniSONE 50 mg PO DAILY #5 tab Is patient prescribed a controlled substance at d/c from ED?: No Referrals: Blanca Escamilla DO [Primary Care Provider] - 1-2 days Time of Disposition: 16:21
[2018-02-10 14:49] LABS: Basophils # (A) 0.1 k/uL (0-0.2); Basophils % (A) 1 %; Eosinophils # (A) 0.5 k/uL (0-0.7); Eosinophils % (A) 7 %; HCT 41.6 % (34.0-46.0); HGB 13.6 gm/dL (11.4-16.0); Lymphocytes # (A) 2.7 k/uL (1.0-4.8); Lymphocytes % (A) 35 %; MCH 30.3 pg (25.0-35.0); MCHC 32.7 g/dL (31.0-37.0); MCV 92.6 fL (80.0-100.0); Mean Platelet Volume 9.2; Monocytes # (A) 0.3 k/uL (0-1.0); Monocytes % (A) 4 %; Neutrophils # (A) 3.9 k/uL (1.3-7.7); Neutrophils % (A) 51 %; Platelet Count 206 k/uL (150-450); RBC 4.49 m/uL (3.80-5.40); RDW 12.8 % (11.5-15.5); WBC 7.6 k/uL (3.8-10.6)
[2018-02-10 14:59] LABS: ALT 35 U/L (9-52); AST 24 U/L (14-36); Albumin 4.4 g/dL (3.5-5.0); Alkaline Phosphatase 61 U/L (38-126); Anion Gap 9 mmol/L; Blood Urea Nitrogen 13 mg/dL (7-17); Carbon Dioxide 26 mmol/L (22-30); Chloride 105 mmol/L (98-107); Glucose 130 mg/dL (74-99); Potassium 4.4 mmol/L (3.5-5.1); Sodium 140 mmol/L (137-145); Total Bilirubin 0.5 mg/dL (0.2-1.3); Total Protein 7.4 g/dL (6.3-8.2)
--- NOTE | 2018-02-10 15:00 | XR ---
EXAMINATION TYPE: XR chest 2V DATE OF EXAM: 02/10/2018 COMPARISON: 05/08/2017 HISTORY: Difficulty breathing and chest pain TECHNIQUE: Frontal and lateral views of the chest are obtained. FINDINGS: There is no focal air space opacity, pleural effusion, or pneumothorax seen. The cardiac silhouette size is within normal limits. The osseous structures are intact. There is partial visual ization of a cervical spinal fusion device. IMPRESSION: No acute cardiopulmonary process.
[2018-02-10 15:10] LABS: D-Dimer 0.28 mg/L FEU (<0.60); INR 1.1 (<1.2); Partial Thromboplastin Time 22.2 sec (22.0-30.0); Prothrombin Time 10.4 sec (9.0-12.0)
[2018-02-10 15:14] LABS: Creatine Kinase 447 U/L (30-135)
[2018-02-10 15:27] LABS: Creatine Kinase MB 2.6 ng/mL (0.0-2.4); Troponin I <0.012 ng/mL (0.000-0.034)
[2018-02-10 16:28] LABS: Appearance,Urine Clear (Clear); Bacteria,Urine Rare /hpf; Bilirubin,Urine Negative (Negative); Blood,Urine Negative (Negative); Color,Urine Yellow; Glucose,Urine (UA) Negative (Negative); Ketones,Urine Negative (Negative); Leukocyte Esterase,Urine Small (Negative); Mucus,Urine Rare /hpf; Nitrite,Urine Negative (Negative); PH, Urine 5.5 (5.0-8.0); Protein,Urine Negative (Negative); RBC,Urine 1 /hpf (0-5); Specific Gravity,Urine 1.014 (1.001-1.035); Squamous Epithelial Cell,Urine <1 /hpf (0-4); Urobilinogen,Urine <2.0 mg/dL (<2.0)
[2018-02-10 16:46] VITALS: BP 156/85; PULSE 81; TEMP 98.3
== END 2018-02-10 16:42 | disposition home or self-care (01) ==
LOC: EC 12:33
DX: J20.9 Acute bronchitis, unspecified (principal); J45.909 Unspecified asthma, uncomplicated; E78.5 Hyperlipidemia, unspecified; I10 Essential (primary) hypertension; E11.9 Type 2 diabetes mellitus without complications; K21.9 Gastro-esophageal reflux disease without esophagitis; G40.909 Epilepsy, unspecified, not intractable, without status epilepticus; M19.90 Unspecified osteoarthritis, unspecified site; F31.9 Bipolar disorder, unspecified; F41.9 Anxiety disorder, unspecified; Z88.5 Allergy status to narcotic agent; Z79.1 Long term (current) use of non-steroidal anti-inflammatories (NSAID); Z79.51 Long term (current) use of inhaled steroids; Z79.84 Long term (current) use of oral hypoglycemic drugs; Z79.899 Other long term (current) drug therapy; Z86.14 Personal history of Methicillin resistant Staphylococcus aureus infection; Z85.3 Personal history of malignant neoplasm of breast; Z92.21 Personal history of antineoplastic chemotherapy; Z90.11 Acquired absence of right breast and nipple; Z86.69 Personal history of other diseases of the nervous system and sense organs
CPT/HCPCS: 99285; 96374; 36415; 94640; 93005; 85379; 80053; 82550; 82553; 84484; 85025; 85610; 85730; 81001; 81025; 71046; J2930

== ENCOUNTER 2018-03-14 19:49 | Emergency (ER) | payer OTHER ==
[2018-03-14] MEDS ORDERED: SODIUM CHLORIDE 0.9% 1,000 ML IV STA (21:38)
--- NOTE | 2018-03-14 21:44 | ED ---
General Adult HPI - General Chief complaint: Upper Respiratory Infection Stated complaint: Cough Source: patient, RN notes reviewed, old records reviewed Mode of arrival: ambulatory Limitations: no limitations - History of Present Illness Initial comments: , 40-year-old female patient presents in ED with complaint of 2 month history of cough, pain with inspiration, intermittent substernal chest pain. Patient states that the substernal chest pain isn't intermittent stabbing sensation that last proximal 1 second. Patient states that the symptoms have been bothering her for approximately 2 months. Patient denies loss of consciousness , syncopal episodes, previous cardiac history. Patient negative stress test approximately one year ago. Patient states that throughout the day she has multiple intermittent stabs of chest pain. Patient states that she experiences multiple times today, patient states that they're not associated with exertion. Patient additionally states that she has a different pain that on her anterior chest wall bilaterally with deep inspiration. Patient was previously evaluated for this approximately 1 month ago. At that time patient is discharged with antibiotics and steroids. Patient denies other complaints. Systemic: Pt denies fatigue, myalgia, fever/chills, rash. Pt denies weakness, night sweats, weight loss. Neuro: Pt denies headache, visual disturbances, syncope or pre-syncope. HEENT: Pt denies ocular discharge or irritation, otalgia, rhinorrhea, pharyngitis or notable lymphadenopathy. Cardiopulmonary: Pt denies SOB, heart palpitations, dyspnea on exertion. Abdominal/GI: Pt denies abdominal pain, n/v/d. : Pt denies dysuria, burning w/ urination, frequency/urgency. Denies new onset urinary or bowel incontinence. MSK: Pt denies myalgia, loss of strength or function in extremities. - Related Data Home Medications Medication Instructions Recorded Confirmed Albuterol Inhaler [Ventolin Hfa 1 - 2 puff INHALATION RT-TID PRN 10/20/15 Inhaler] DULoxetine HCL [Cymbalta] 60 mg PO DAILY 10/20/15 02/10/18 Furosemide [Lasix] 20 mg PO BID 10/20/15 02/10/18 Nitroglycerin Sl Tabs [Nitrostat] 0.4 mg SUBLINGUAL Q5M PRN 10/20/15 02/10/18 Propranolol [Inderal] 40 mg PO BID 10/20/15 02/10/18 lamoTRIgine [LaMICtal] 100 mg PO BID 10/20/15 02/10/18 levETIRAcetam [Keppra] 1,000 mg PO BID 10/20/15 02/10/18 Albuterol Nebulized [Ventolin 2.5 mg INHALATION RT-Q6H PRN 05/08/17 02/10/18 Nebulized] Flunisolide [Aerospan] 2 puff INHALATION RT-BID 05/08/17 02/10/18 Gabapentin [Neurontin] 300 mg PO BID 05/08/17 02/10/18 Meclizine [Antivert] 25 mg PO DAILY PRN 05/08/17 02/10/18 Omeprazole 20 mg PO BID 05/08/17 02/10/18 Simvastatin [Zocor] 20 mg PO HS 05/08/17 02/10/18 metFORMIN HCL [Glucophage] 500 mg PO BID 05/08/17 02/10/18 Cranberry Fruit Concentrate [Azo 250 mg PO DAILY 02/10/18 02/10/18 Cranberry] Cyclobenzaprine [Flexeril] 10 mg PO TID 02/10/18 02/10/18 Diclofenac Sodium [Voltaren] 75 mg PO BID 02/10/18 02/10/18 Docusate [Colace] 100 mg PO DAILY 02/10/18 02/10/18 Famotidine [Pepcid] 20 mg PO BID 02/10/18 02/10/18 Lisinopril [Zestril] 10 mg PO DAILY 02/10/18 02/10/18 tiZANidine HCL 4 mg PO DAILY PRN 02/10/18 02/10/18 Previous Rx's Medication Instructions Recorded Azithromycin [Zithromax Z-pack] 0 mg PO DIRECTED #6 tab 02/10/18 predniSONE 50 mg PO DAILY #5 tab 02/10/18 methylPREDNISolone Dose Pack 4 mg PO DIRECTED #21 package 03/14/18 [Medrol Dose Pack] Allergies Allergy/AdvReac Type Severity Reaction Status Date / Time morphine AdvReac Unknown SEVERE Verified 03/14/18 20:29 HEADACHE Review of Systems ROS Statement: Those systems with pertinent positive or pertinent negative responses have been documented in the HPI. ROS Other: All systems not noted in ROS Statement are negative. Past Medical History Past Medical History: Asthma, Cancer, Chest Pain / Angina, Diabetes Mellitus, Fibromyalgia, GERD/Reflux, Hyperlipidemia, Hypertension, Neurologic Disorder, Osteoarthritis (OA), Seizure Disorder, Skin Disorder, Thyroid Disorder Additional Past Medical History / Comment(s): HX OF SEIZURES (LAST -2015), MIGRAINES, VERTIGO, HEART MURMUR, SLIGHT SWELLING LOWER EXTREMITIES, CONSTIPATION., ARTHRITIS BACK & NERVE PAIN. , DEGENERATIVE DISC, HX OF RIGHT BREAST CANCER WITH CHEMO., eczema History of Any Multi-Drug Resistant Organisms: MRSA Date of last positivie culture/infection: 11/23/14 MDRO Source:: urine Past Surgical History: Breast Surgery, Cholecystectomy, Tubal Ligation Additional Past Surgical History / Comment(s): RIGHT MASTECTOMY, PORT inserted/ removed, spinal fusion Past Anesthesia/Blood Transfusion Reactions: Motion Sickness Additional Past Anesthesia/Blood Transfusion Reaction / Comment(s): SISTER = DIFFICULTY WAKING UP. Past Psychological History: Anxiety, Bipolar, Depression Smoking Status: Never smoker Past Alcohol Use History: None Reported Past Drug Use History: None Reported - Past Family History Brother(s) Family Medical History: Cancer Additional Family Medical History / Comment(s): KIDNEY CANCER General Exam - General Exam Comments Initial Comments: Constitutional: NAD, AOX3, Pt has pleasant affect. HEENT: NC/AT, trachea midline, neck supple, no lymphadenopathy. Posterior pharynx non erythematous, without exudates. External ears appear normal, without discharge. Mucous membranes moist. Eyes PERRLA, EOM intact. There is no scleral icterus. No pallor noted. Cardiopulmonary: RRR, no murmurs, rubs or gallops, no JVD noted. Lungs CTAB in anterior and posterior weston. No peripheral edema. Abdominal exam: Abdomen soft and non-distended. Abdomen non-tender to palpation in all 4 quadrants. Bowel sounds active in LLQ. No hepatosplenomegaly. Neuro: CN II-XII grossly intact. Limitations: no limitations Course Vital Signs 03/14/18 03/14/18 20:27 22:05 Temperature 98.6 F Pulse Rate 86 75 Respiratory 18 18 Rate Blood Pressure 157/84 172/92 O2 Sat by Pulse 98 99 Oximetry Medical Decision Making - Medical Decision Making 48-year-old female patient presents to ED with cough, pain with deep inspiration , intermittent complaints of substernal chest pain. Physical exam did not reveal any gross pathology. Initial investigations including a CBC, CMP within normal limits. D-dimer was negative. Troponin was negative. EKG was NSR, no concerns of acute ischemia. Chest x-ray did not display any acute process. Patient to be discharged with Medrol Dosepak. Patient diagnosed with bronchitis. Patient to follow-up with PCP in 1-2 days. Patient to return to ED if new signs or symptoms develop including aspirin, shortness breath, abdominal pain, pleuritic chest pain, dyspnea, any other new symptoms. Case discussed with Dr. Ibarra. - Lab Data Result diagrams: 03/14/18 22:03 03/14/18 22:03 Lab Results 03/14/18 03/14/18 03/14/18 Range/Units 22:03 22: 22:03 WBC 9.2 (3.8-10.6) k/uL RBC 4.61 (3.80-5.40) m/uL Hgb 14.1 (11.4-16.0) gm/dL Hct 42.5 (34.0-46.0) % MCV 92.2 (80.0-100.0) fL MCH 30.7 (25.0-35.0) pg MCHC 33.3 (31.0-37.0) g/dL RDW 13.0 (11.5-15.5) % Plt Count 254 (150-450) k/uL Neutrophils % 47 % Lymphocytes % 40 % Monocytes % 6 % Eosinophils % 3 % Basophils % 1 % Neutrophils # 4.4 (1.3-7.7) k/uL Lymphocytes # 3.7 (1.0-4.8) k/uL Monocytes # 0.5 (0-1.0) k/uL Eosinophils # 0.3 (0-0.7) k/uL Basophils # 0.1 (0-0.2) k/uL D-Dimer 0.27 (<0.60) mg/L FEU Sodium 140 (137-145) mmol/L Potassium 4.0 (3.5-5.1) mmol/L Chloride 104 (98-107) mmol/L Carbon Dioxide 26 (22-30) mmol/L Anion Gap 10 mmol/L BUN 11 (7-17) mg/dL Creatinine 0.97 (0.52-1.04) mg/dL Est GFR (CKD-EPI)AfAm 80 (>60 ml/min/1.73 sqM) Est GFR (CKD-EPI)NonAf 70 (>60 ml/min/1.73 sqM) Glucose 117 H (74-99) mg/dL Calcium 9.9 (8.4-10.2) mg/dL Total Bilirubin 0.4 (0.2-1.3) mg/dL AST 24 (14-36) U/L ALT 24 (9-52) U/L Alkaline Phosphatase 56 (38-126) U/L Troponin I (0.000-0.034) ng/mL Total Protein 7.2 (6.3-8.2) g/dL Albumin 4.2 (3.5-5.0) g/dL 03/14/18 Range/Units 22:03 WBC (3.8-10.6) k/uL RBC (3.80-5.40) m/uL Hgb (11.4-16.0) gm/dL Hct (34.0-46.0) % MCV (80.0-100.0) fL MCH (25.0-35.0) pg MCHC (31.0-37.0) g/dL RDW (11.5-15.5) % Plt Count (150-450) k/uL Neutrophils % % Lymphocytes % % Monocytes % % Eosinophils % % Basophils % % Neutrophils # (1.3-7.7) k/uL Lymphocytes # (1.0-4.8) k/uL Monocytes # (0-1.0) k/uL Eosinophils # (0-0.7) k/uL Basophils # (0-0.2) k/uL D-Dimer (<0.60) mg/L FEU Sodium (137-145) mmol/L Potassium (3.5-5.1) mmol/L Chloride (98-107) mmol/L Carbon Dioxide (22-30) mmol/L Anion Gap mmol/L BUN (7-17) mg/dL Creatinine (0.52-1.04) mg/dL Est GFR (CKD-EPI)AfAm (>60 ml/min/1.73 sqM) Est GFR (CKD-EPI)NonAf (>60 ml/min/1.73 sqM) Glucose (74-99) mg/dL Calcium (8.4-10.2) mg/dL Total Bilirubin (0.2-1.3) mg/dL AST (14-36) U/L ALT (9-52) U/L Alkaline Phosphatase (38-126) U/L Troponin I <0.012 (0.000-0.034) ng/mL Total Protein (6.3-8.2) g/dL Albumin (3.5-5.0) g/dL - EKG Data -: EKG Interpreted by Me EKG Comments: Ventricular rate 73, NJ interval 140, QRS 84, QT/QTc 416/458, normal sinus rhythm, normal EKG, no concerns for acute ischemia. Disposition Clinical Impression: Bronchitis Disposition: HOME SELF-CARE Condition: Good Instructions: Acute Bronchitis (ED) Additional Instructions: Patient to adhere to previously discussed treatment plan and will take medication(s) as directed. Patient to follow up with PCP in 1-2 days. Patient to return to ED if symptoms do not improve. Prescriptions: methylPREDNISolone Dose Pack [Medrol Dose Pack] 4 mg PO DIRECTED #21 package Is patient prescribed a controlled substance at d/c from ED?: No Referrals: Blanca Escamilla DO [Primary Care Provider] - 1-2 days Time of Disposition: 23:38
[2018-03-14 22:21] LABS: Basophils # (A) 0.1 k/uL (0-0.2); Basophils % (A) 1 %; Eosinophils # (A) 0.3 k/uL (0-0.7); Eosinophils % (A) 3 %; HCT 42.5 % (34.0-46.0); HGB 14.1 gm/dL (11.4-16.0); Lymphocytes # (A) 3.7 k/uL (1.0-4.8); Lymphocytes % (A) 40 %; MCH 30.7 pg (25.0-35.0); MCHC 33.3 g/dL (31.0-37.0); MCV 92.2 fL (80.0-100.0); Mean Platelet Volume 8.2; Monocytes # (A) 0.5 k/uL (0-1.0); Monocytes % (A) 6 %; Neutrophils # (A) 4.4 k/uL (1.3-7.7); Neutrophils % (A) 47 %; Platelet Count 254 k/uL (150-450); RBC 4.61 m/uL (3.80-5.40); WBC 9.2 k/uL (3.8-10.6)
[2018-03-14 22:30] LABS: Albumin 4.2 g/dL (3.5-5.0); Calcium 9.9 mg/dL (8.4-10.2); Total Bilirubin 0.4 mg/dL (0.2-1.3); Total Protein 7.2 g/dL (6.3-8.2)
--- NOTE | 2018-03-14 23:25 | XR ---
EXAMINATION TYPE: XR chest 2V DATE OF EXAM: 03/14/2018 COMPARISON: 02/10/2018 HISTORY: Chest pain TECHNIQUE: Frontal and lateral views of the chest are obtained. FINDINGS: Heart and mediastinum are normal. Lungs are clear. Diaphragm is normal. Bony thorax is int act. There is cervical spine fusion surgery. IMPRESSION: Normal chest. No change.
[2018-03-14 23:47] VITALS: BP 133/73; PULSE 77; RESP 20; TEMP 97.7
== END 2018-03-14 23:47 | disposition home or self-care (01) ==
LOC: EC 19:49
DX: J40 Bronchitis, not specified as acute or chronic (principal); E11.9 Type 2 diabetes mellitus without complications; K21.9 Gastro-esophageal reflux disease without esophagitis; E78.5 Hyperlipidemia, unspecified; I10 Essential (primary) hypertension; G40.909 Epilepsy, unspecified, not intractable, without status epilepticus; F41.9 Anxiety disorder, unspecified; F31.9 Bipolar disorder, unspecified; Z79.899 Other long term (current) drug therapy; Z79.84 Long term (current) use of oral hypoglycemic drugs; Z91.018 Allergy to other foods; Z88.5 Allergy status to narcotic agent; Z85.3 Personal history of malignant neoplasm of breast; Z90.11 Acquired absence of right breast and nipple
CPT/HCPCS: 36415; 71046; 80053; 84484; 85025; 85379; 93005; 96360; 96361; 99284

== ENCOUNTER → 2023-12-15 | Outpatient (CLI) | payer OTHER ==
--- NOTE | 2023-12-15 14:00 | CA ---
Exercise Stress Test Report Name: Richard Thomas Exam Date: 12/15/2023 09:57 Exam Location: [place] Stress Ht (in): 69 Wt (lb): 193 BSA: 2.03 Ordering Phys: Yana Pablo DO Referring Phys: Susan Armstrong PAC Technologist: Artem Kirk Age: 53 Gender: F : 1970 Procedure CPT: Indications: I10 ESSENTIAL (PRIMARY) HYPERTENSION I20.89 OTHER ICD-10 Codes: Patient History: Chest pain, shortness of breath and palpitations. Medications: Meds past 24 hrs: Pretest Chest Pain: STRESS TEST Mahesh Protocol Exercise Duration (min:sec): 07:[address] Depressions (mm): Angina Score: Dasilva Score: Resting HR (bpm): 71 Peak HR (bpm): 148 Resting BP (mmHg): 155 / 79 Peak BP (mmHg): 216 / 74 MPHR: 167 Target HR: 142 % MPHR: 89 METS: 9.1 Total Dose: Peak Dose: Atropine: Double Product: 66555 BP Response: Stress Termination: MAX EXERTION/TARGET HR Stress Symptoms: NO SYMPTOMS Stress Summary: ECG ANALYSIS Resting ECG: Stress ECG: CONCLUSIONS Patient underwent exercise stress EKG with a Mahesh protocol treadmill stress test. Patient exercised into Stage 3 for a total of 7 minutes and 30 seconds reaching a total of 9.1 METS. Patient's maximum heart rate was 148 which represented 88% age- predicted maximum heart rate. Stress EKG findings: At baseline patient's EKG showed normal sinus rhythm, normal axis, no significant ST or T wave abnormalities. At peak exercise, EKG showed no significant change from baseline. Conclusions: 1. Normal EKG response to exercise without evidence of inducible ischemia. 2. Fair exercise capacity. Dr. Anuel Ureña DO (Electronically Signed) Final Date: 15 December 2023 13:59
== END | disposition home or self-care (01) ==
LOC: RADNMMAIN 09:08
PROVIDERS: ATTEND Family Medicine
DX: I10 Essential (primary) hypertension (principal); I20.89 Other forms of angina pectoris; R00.2 Palpitations; R07.9 Chest pain, unspecified; R06.02 Shortness of breath
CPT/HCPCS: 93017

== ENCOUNTER → 2024-04-08 | Outpatient (CLI) | payer OTHER ==
[2024-04-08 14:12] VITALS: BP 162/82; PULSE 66; RESP 16; TEMP 98
--- NOTE | 2024-04-08 14:49 | P.SLEEP ---
History of Present Illness DATE: 04/08/2024 CONSULTATION/NEW PATIENT EVALUATION HISTORY OF PRESENT ILLNESS/SLEEP-WAKE EVALUATION: 54-year-old lady had been evaluated in the sleep center for possible obstructive sleep apnea hypopnea syndrome. SLEEP SCHEDULE: Usually sleep schedule from 10 PM to 5 AM and then patient again sleeps during the day from 8 AM until 2 PM. FALLING ASLEEP: Patient does have problems with falling asleep, has TV in bedroom. DURING SLEEP: Patient snores and wakes up from sleep with episodes of choking, nocturia. Positive history of moving legs during the night. No history of hypnogogical hallucinations, sleep paralysis, or cataplexy. DURING THE DAY/WAKE STATE: In the morning patient wake up tired, has difficulties to pay attention, has problems with memory, irritability and depression. [place] sleepiness scale is borderline 9. Patient may take up to 2 naps during the day. PAST MEDICAL HISTORY: Hypertension, hyperlipidemia, epilepsy, asthma, fibromyalgia, acid reflux, diabetes mellitus, hyperthyroidism. PAST SURGICAL HISTORY: Right mastectomy for cancer, cholecystectomy. MEDICATIONS: Please see below. SOCIAL HISTORY: Please see below. FAMILY HISTORY: Please see below. REVIEW OF SYSTEMS: Snoring, awakenings from sleep, sleepiness during the day. No fevers. No double vision. No recent chest pain. No shortness of breath. No abdominal pain. No bleeding episodes. No blood in urine. No seizure episodes. PHYSICAL EXAMINATION: GENERAL: A pleasant patient without any distress. VITAL SIGNS: Please see below, weight 195 pounds, BMI 29.2. HEENT: PERRLA, EOMI. Evaluation of oropharynx showed tongue protrudes midline, low position of soft palate Mallampati 4. NECK: Supple. No JVD. Thyroid is not palpable. 15.5 inches in circumference. LUNGS: Clear to percussion and to auscultation. Good air exchange. No wheezing or rhonchi. HEART: S1, S2 regular. No murmurs, gallops or rubs. ABDOMEN: Soft and nontender. Bowel sounds are present. No organomegaly appreciated. EXTREMITIES: No clubbing or cyanosis. CLOSER ON: Awake, alert, and oriented x3. Cranial nerves 2 to 7 intact. There is no fasciculation or atrophy noted. No focal deficits observed. ASSESSMENT: 1. Snoring, awakenings from sleep, extremely low position of soft palate, sleepiness during the day. Obstructive sleep apnea hypopnea syndrome. 2. Extremely long sleep about 7 hours at night and 6 hours during the day. Differential diagnosis should include hypersomnia. 3. Epilepsy, last episode 1 year ago. 4. Hypertension. 5 asthma. 6 . Diabetes mellitus. 7. Acid reflux. 8. Fibromyalgia. 9 . Hyperlipidemia. 10. Hyperthyroidism according to patient. 11. Status post right mastectomy for cancer. 12. Restless leg symptoms. 13. Status post cholecystectomy. PLAN: 1. Polysomnography for evaluation of patient's breathing during sleep. 2. Following plan after reading sleep study. 3. Preferable position during sleep on the side. 4. No driving if patient feels any sleepiness. Patient is aware of civil and criminal liability for unsafe driving. 5. Sleep hygiene with regular sleep time for at least 7.5-8 hours. 6. Watching weight. Thank you very much for referring this patient for consultation. Sincerely, Jc Dean MD, PhD, FAASM. Diplomat of [place] [employer], Sleep Medicine Board by [place] [employer] [employer] [facility] [place] cc: Blanca Escamilla DO Past Medical History Past Medical History: Asthma, Cancer, Chest Pain / Angina, Diabetes Mellitus, Fibromyalgia, GERD/Reflux, Hyperlipidemia, Hypertension, Neurologic Disorder, Osteoarthritis (OA), Seizure Disorder, Skin Disorder, Thyroid Disorder Additional Past Medical History / Comment(s): HX OF SEIZURES (LAST -2015), MIGRAINES, VERTIGO, HEART MURMUR, SLIGHT SWELLING LOWER EXTREMITIES, CONSTIPATION., ARTHRITIS BACK & NERVE PAIN. , DEGENERATIVE DISC, HX OF RIGHT BREAST CANCER WITH CHEMO., eczema, History of Any Multi-Drug Resistant Organisms: MRSA Date of last positivie culture/infection: 11/23/14 MDRO Source:: urine Past Surgical History: Breast Surgery, Cholecystectomy, Tubal Ligation Additional Past Surgical History / Comment(s): RIGHT MASTECTOMY, PORT inserted/removed, spinal fusion, Past Anesthesia/Blood Transfusion Reactions: Motion Sickness Additional Past Anesthesia/Blood Transfusion Reaction / Comment(s): SISTER = DIFFICULTY WAKING UP. Past Psychological History: Anxiety, Bipolar, Depression Smoking Status: Never smoker Past Alcohol Use History: None Reported Past Drug Use History: None Reported - Past Family History Brother(s) Family Medical History: Cancer Additional Family Medical History / Comment(s): KIDNEY CANCER, epilepsy Father Family Medical History: Coronary Artery Disease (CAD), Hyperlipidemia, Hypertension, Rheumatoid Arthritis (RA) Additional Family Medical History / Comment(s): snoring, headaches, Mental Illness Mother Family Medical History: Asthma, Coronary Artery Disease (CAD), CVA/TIA, Diabetes Mellitus, Hyperlipidemia, Hypertension, Rheumatoid Arthritis (RA) Additional Family Medical History / Comment(s): snoring, headaches & mental illn ess Sister(s) Family Medical History: Cancer, Thyroid Disorder Daughter(s) Family Medical History: Thyroid Disorder Medications and Allergies Home Medications Medication Instructions Recorded Confirmed Type Albuterol Inhaler [Ventolin Hfa 1 - 2 puff INHALATION RT-TID PRN 10/20/15 History Inhaler] DULoxetine HCL [Cymbalta] 60 mg PO DAILY 10/20/15 02/10/18 History Furosemide [Lasix] 20 mg PO BID 10/20/15 02/10/18 History Nitroglycerin Sl Tabs [Nitrostat] 0.4 mg SUBLINGUAL Q5M PRN 10/20/15 02/10/18 History Propranolol [Inderal] 40 mg PO BID 10/20/15 02/10/18 History lamoTRIgine [LaMICtal] 100 mg PO BID 10/20/15 04/08/24 History levETIRAcetam [Keppra] 1,000 mg PO BID 10/20/15 04/08/24 History Albuterol Nebulized [Ventolin 2.5 mg INHALATION RT-Q6H PRN 05/08/17 04/08/24 History Nebulized] Flunisolide [Aerospan] 2 puff INHALATION RT-BID 05/08/17 02/10/18 History Gabapentin [Neurontin] 300 mg PO BID 05/08/17 02/10/18 History Meclizine [Antivert] 25 mg PO DAILY PRN 05/08/17 04/08/24 History Omeprazole 20 mg PO BID 05/08/17 04/08/24 History Simvastatin [Zocor] 20 mg PO HS 05/08/17 02/10/18 History metFORMIN HCL [Glucophage] 500 mg PO BID 05/08/17 02/10/18 History Azithromycin [Zithromax Z-pack (6 0 mg PO DIRECTED #6 tab 02/10/18 Rx tabs)] Cranberry Fruit Concentrate [Azo 250 mg PO DAILY 02/10/18 02/10/18 History Cranberry] Cyclobenzaprine [Flexeril] 10 mg PO TID 02/10/18 04/08/24 History Diclofenac Sodium [Voltaren] 75 mg PO BID 02/10/18 02/10/18 History Docusate [Colace] 100 mg PO DAILY 02/10/18 02/10/18 History Famotidine [Pepcid] 20 mg PO BID 02/10/18 04/08/24 History lisinopriL [Zestril] 30 mg PO DAILY 02/10/18 04/08/24 History predniSONE 50 mg PO DAILY #5 tab 02/10/18 Rx tiZANidine HCL 4 mg PO DAILY PRN 02/10/18 02/10/18 History methylPREDNISolone Dose Pack 4 mg PO DIRECTED #21 package 03/14/18 Rx [Medrol Dose Pack] Budesonide-Formot 160-4.5 Mcg See Rx Instructions .ROUTE .COMPLEX 04/08/24 04/08/24 History [Symbicort 160-4.5 Mcg Inhaler] Cetirizine HCl 10 mg PO DAILY 04/08/24 04/08/24 History Montelukast [Singulair] 10 mg PO DAILY 04/08/24 04/08/24 History Tiotropium 18 Mcg/Puff [Spiriva] See Rx Instructions .ROUTE .COMPLEX 04/08/24 04/08/24 History Allergies Allergy/AdvReac Type Severity Reaction Status Date / Time morphine AdvReac Unknown SEVERE Verified 10/12/18 23:06 HEADACHE Physical Exam Vitals: Vital Signs Temp Pulse Resp BP Pulse Ox 04/08/24 14:11 98 F 66 16 162/82 99 Intake and Output 04/07/24 04/08/24 04/08/24 22:59 06:59 14:59 Other: Weight 88.451 kg Sleep Note - Sleep Data ESS Total: 9 - Sleep Note Sleep Note: Temperature: 98 F Pulse Rate: 66 Respiratory Rate: 16 Blood Pressure: 162/82 SpO2: 99 Height: 5 ft 8.5 in Weight: 88.451 kg BMI: Neck Circumference: 15.5
== END ==
LOC: 3 N SLEEP 13:48
PROVIDERS: ATTEND Internal Medicine
DX: G47.33 Obstructive sleep apnea (adult) (pediatric) (principal); G40.909 Epilepsy, unspecified, not intractable, without status epilepticus; I10 Essential (primary) hypertension; J45.909 Unspecified asthma, uncomplicated; E11.9 Type 2 diabetes mellitus without complications; K21.9 Gastro-esophageal reflux disease without esophagitis; M79.7 Fibromyalgia; G25.81 Restless legs syndrome; E78.5 Hyperlipidemia, unspecified; E03.9 Hypothyroidism, unspecified; Z90.11 Acquired absence of right breast and nipple; Z85.3 Personal history of malignant neoplasm of breast; Z90.49 Acquired absence of other specified parts of digestive tract; Z88.5 Allergy status to narcotic agent; Z79.84 Long term (current) use of oral hypoglycemic drugs; Z79.899 Other long term (current) drug therapy
CPT/HCPCS: 99211